=== PATIENT | female | born 2000 | race Asian ===

== ENCOUNTER 2023-11-05 08:58 | Outpatient (CLI) | payer BC | END 2023-11-05 23:59 | disposition home or self-care (01) | LOC: RAD 08:58 | PROVIDERS: ATTEND Family Medicine | DX: M54.9 Dorsalgia, unspecified (principal) | CPT/HCPCS: 72070-TC ==

== ENCOUNTER 2023-11-28 15:36 | Outpatient (CLI) | payer BC | END 2023-11-28 23:59 | disposition home or self-care (01) | LOC: RAD 15:36 | PROVIDERS: ATTEND Family Medicine | DX: M25.531 Pain in right wrist (principal); M54.50 Low back pain, unspecified | CPT/HCPCS: 72100-TC; 73110 ==

== ENCOUNTER 2023-12-08 15:13 | Emergency (ER) | payer OTHER, BC ==
[~2023-12-08] VITALS: Ht 154.9 cm; Wt 45.4 kg
[2023-12-08 15:38] VITALS: BP 115/75; TEMP 98
[2023-12-08 17:46] VITALS: O2SAT 97
== END 2023-12-08 17:47 | disposition home or self-care (01) ==
LOC: ER 15:17
DX: M79.644 Pain in right finger(s) (principal)
CPT/HCPCS: 73130-TC